=== PATIENT | male | born 1935 | race Caucasian/White ===

== ENCOUNTER 2021-01-23 12:34 | Outpatient (CLI) | payer MEDICARE, BC | END 2021-01-23 12:35 | disposition home or self-care (01) | LOC: CSHCT 12:34 | PROVIDERS: ATTEND Family Medicine | DX: C61 Malignant neoplasm of prostate (principal); D18.03 Hemangioma of intra-abdominal structures; N28.1 Cyst of kidney, acquired | CPT/HCPCS: 74177; 82565 ==

== ENCOUNTER 2022-06-01 09:30 | Emergency (ER) | payer MEDICARE, BC ==
[2022-06-01 10:10] LABS: #Eosinphils 0.3 10x3/uL (0.0-0.5); #Monocytes 0.5 10x3/uL (0.0-1.1); #Neutrophils 3.5 10x3/uL (1.5-8.4); %Basophils 0.8 % (0.0-2.0); %Eosinophils 5.1 % (0.0-6.0); %Lymphocytes 11.5 % (18.0-47.0); %Monocytes 10.3 % (0.0-10.0); %Neutrophils 72.1 % (40.0-75.0); Hemoglobin 11.4 g/dL (13.5-17.5); Mean Corpuscular HGB CONC 32.4 g/dL (32.0-36.0); Mean Corpuscular Hemoglobin 34.3 pg (27.0-33.0); Platelet Count 226 10x3/uL (150-450); RBC Distribution Width 12.5 % (11.5-14.5); Red Blood Cell (RBC) Count 3.32 10x6/uL (4.32-5.72); White Blood Cell (WBC) Count 4.9 10x3/uL (3.5-10.5)
[2022-06-01 10:24] LABS: ALT (SGPT) 16 U/L (8-55); AST (SGOT) 24 U/L (5-34); Albumin 3.6 g/dL (3.4-4.8); Alkaline Phosphatase 59 U/L (40-110); Anion Gap 14 mmol/L (10-20); BUN (Urea Nitrogen) 19 mg/dL (8.4-25.7); Bilirubin, Total 0.7 mg/dL (0.2-1.2); Calc. Creatinine Clearance 0 mL/min (70-130); Calcium 8.9 mg/dL (7.8-10.44); Carbon Dioxide 25 mmol/L (23-31); Chloride 107 mmol/L (98-107); Estimated GFR 69; Globulin 2.5 g/dL (2.4-3.5); Glucose 116 mg/dL (83-110); Potassium 4.5 mmol/L (3.5-5.1); Protein, Total 6.1 g/dL (5.8-8.1); Sodium 141 mmol/L (136-145)
[2022-06-01 10:48] LABS: Macrocytosis MARKED = >30 cells (100X) (0-5/hpf)
[2022-06-01] MEDS ORDERED: Acetaminophen 325 MG TAB PO PRN (13:12)
[2022-06-01] MEDS ORDERED: Ondansetron PF 4 MG/2 ML Vial IVP PRN (13:12)
== END 2022-06-01 12:00 | disposition short-term general hospital (02) ==
LOC: CSHERS 09:30 → SUATTDRO 09:30 → CSHERS 12:00
PROVIDERS: ADMIT Internal Medicine; ATTEND Internal Medicine
DX: R55 Syncope and collapse (principal); R00.1 Bradycardia, unspecified; I10 Essential (primary) hypertension; Z79.899 Other long term (current) drug therapy
CPT/HCPCS: 36415; 80053; 84484; 85025; 93005

== ENCOUNTER 2022-06-25 20:14 | Observation (INO) | payer MEDICARE, BC ==
[2022-06-25] MEDS ORDERED: Ketorolac Tromethamine 30 MG/ML VIAL ONE (21:31)
[2022-06-26] MEDS ORDERED: Acetaminophen 325 MG TAB ONE (00:06)
[2022-06-26] MEDS ORDERED: Senokot S 8.6-50 MG TAB PO PRN (02:37)
[2022-06-26] MEDS ORDERED: Ondansetron ODT 4 MG TAB PO PRN (02:37)
[2022-06-26] MEDS ORDERED: Ondansetron PF 4 MG/2 ML Vial IVP PRN (02:37)
[2022-06-26] MEDS ORDERED: HYDROcodone/Acetaminophen 5/325 mg Tablet PO PRN (02:37)
[2022-06-26 03:27] LABS: Anion Gap 14 mmol/L (10-20); BUN (Urea Nitrogen) 23 mg/dL (8.4-25.7); Calc. Creatinine Clearance 0 mL/min (70-130); Calcium 8.8 mg/dL (7.8-10.44); Carbon Dioxide 23 mmol/L (23-31); Chloride 105 mmol/L (98-107); Estimated GFR 72; Glucose 144 mg/dL (83-110); Magnesium 2.2 mg/dL (1.6-2.6); Potassium 4.1 mmol/L (3.5-5.1); Sodium 138 mmol/L (136-145)
[2022-06-26 03:37] LABS: #Monocytes 0.4 10x3/uL (0.0-1.1); #Neutrophils 3.3 10x3/uL (1.5-8.4); %Basophils 0.3 % (0.0-2.0); %Eosinophils 0.3 % (0.0-6.0); %Lymphocytes 4.1 % (18.0-47.0); %Monocytes 11.1 % (0.0-10.0); %Neutrophils 83.9 % (40.0-75.0); Hemoglobin 9.7 g/dL (13.5-17.5); Mean Corpuscular HGB CONC 33.7 g/dL (32.0-36.0); Mean Corpuscular Hemoglobin 34.8 pg (27.0-33.0); Mean Corpuscular Volume 103.2 fl (81.2-95.1); Platelet Count 174 10x3/uL (150-450); RBC Distribution Width 12.8 % (11.5-14.5); Red Blood Cell (RBC) Count 2.79 10x6/uL (4.32-5.72); White Blood Cell (WBC) Count 3.9 10x3/uL (3.5-10.5)
[2022-06-26 05:25] VITALS: BMI 25.2
[2022-06-26] MEDS ORDERED: Fentanyl 100 MCG/2 ML VIAL SLOW IVP SCH (05:30)
[2022-06-26] MEDS ORDERED: Alendronate Sodium 70 mg Tablet PO SCH (05:30)
[2022-06-26] MEDS: Acetaminophen 325 MG TAB PO PRN ×3 (05:51→16:42)
[2022-06-26 06:41] LABS: Bilirubin Neg (Negative); Blood, Urine Negative (Negative); Clarity Clear (Clear); Glucose, Urine (Dipstick) Normal (Negative); Ketone, Urine Negative (Negative); Leukocyte 25 (Negative); Nitrite Negative (Negative); Protein, Urine (Dipstick) 30 mg/dl (Neg-Trace); Urobilinogen Normal mg/dL (Less than 2)
[2022-06-26 07:33] LABS: Bacteria/HPF None Seen HPF (None Seen); RBC/HPF 0-3 HPF (0-3); Squamous Epithelial 0-3 HPF (0-3); WBC/HPF 0-3 HPF (0-3)
[2022-06-26] MEDS ORDERED: Multivit, Therapeutic 1 TAB PO SCH (09:00)
[2022-06-26] MEDS ORDERED: Cholecalciferol 1,000 UNITS (25 MCG) TAB PO SCH (09:00)
[2022-06-26] MEDS ORDERED: Fludrocortisone Acetate 0.1 MG TAB PO SCH (09:00)
[2022-06-26] MEDS: Ketorolac Tromethamine 30 MG/ML VIAL IVP PRN ×2 (11:40→18:37)
[2022-06-26 17:27] VITALS: BP 137/67; TEMP 99.1
[2022-06-26] MEDS ORDERED: Atorvastatin Calcium 10 MG TAB PO SCH (21:00)
== END 2022-06-26 20:19 ==
LOC: CSHERS 20:14 → CSHTELE 06-26 05:04
PROVIDERS: ADMIT Family Medicine; ATTEND Internal Medicine
DX: S32.029A Unspecified fracture of second lumbar vertebra, initial encounter for closed fracture (principal); U07.1 COVID-19; F03.90 Unspecified dementia, unspecified severity, without behavioral disturbance, psychotic disturbance, mood disturbance, and anxiety; I10 Essential (primary) hypertension; N40.0 Benign prostatic hyperplasia without lower urinary tract symptoms; Z85.46 Personal history of malignant neoplasm of prostate; E78.5 Hyperlipidemia, unspecified; F17.220 Nicotine dependence, chewing tobacco, uncomplicated; W18.30XA Fall on same level, unspecified, initial encounter; Z79.899 Other long term (current) drug therapy
CPT/HCPCS: 71101; 72100; 72220; 80048; 81001; 83735; 85025; 93005; 96372; 96375; 96376; G0378 ×2; U0003; U0005; 36415; 93010; 96374; J1650; J1885; J3010

== ENCOUNTER 2022-07-22 08:14 | Inpatient (IN) | payer MEDICARE, BC ==
[2022-07-22 08:57] LABS: #Eosinphils 0.1 10x3/uL (0.0-0.5); #Monocytes 0.3 10x3/uL (0.0-1.1); #Neutrophils 1.5 10x3/uL (1.5-8.4); %Basophils 0.9 % (0.0-2.0); %Eosinophils 4.5 % (0.0-6.0); %Lymphocytes 11.3 % (18.0-47.0); %Monocytes 14.9 % (0.0-10.0); %Neutrophils 67.9 % (40.0-75.0); Hemoglobin 10.2 g/dL (13.5-17.5); Mean Corpuscular HGB CONC 32.9 g/dL (32.0-36.0); Mean Corpuscular Hemoglobin 34.6 pg (27.0-33.0); Mean Corpuscular Volume 105.1 fl (81.2-95.1); Mean Platelet Volume 9.5 fl (7.4-10.4); Platelet Count 217 10x3/uL (150-450); RBC Distribution Width 14.4 % (11.5-14.5); Red Blood Cell (RBC) Count 2.95 10x6/uL (4.32-5.72); White Blood Cell (WBC) Count 2.2 10x3/uL (3.5-10.5)
[2022-07-22 09:13] LABS: ALT (SGPT) 21 U/L (8-55); AST (SGOT) 28 U/L (5-34); Albumin 3.3 g/dL (3.4-4.8); Alkaline Phosphatase 67 U/L (40-110); Anion Gap 12 mmol/L (10-20); BUN (Urea Nitrogen) 16 mg/dL (8.4-25.7); Bilirubin, Total 0.6 mg/dL (0.2-1.2); Calc. Creatinine Clearance 0 mL/min (70-130); Calcium 8.4 mg/dL (7.8-10.44); Carbon Dioxide 25 mmol/L (23-31); Chloride 105 mmol/L (98-107); Estimated GFR 65; Globulin 2.5 g/dL (2.4-3.5); Glucose 105 mg/dL (83-110); Potassium 3.9 mmol/L (3.5-5.1); Protein, Total 5.8 g/dL (5.8-8.1); Sodium 138 mmol/L (136-145)
[2022-07-22 09:34] LABS: Macrocytosis SLIGHT = 6-15 cells (100X) (0-5/hpf)
[2022-07-22 09:35] LABS: Platelet Morphology Comment Appears Adequate
[2022-07-22] MEDS ORDERED: Iopamidol 370 76% 100 ML VIAL ONE (09:48)
[2022-07-22 10:17] LABS: Bilirubin Neg (Negative); Blood, Urine 250 (Negative); Clarity Cloudy (Clear); Glucose, Urine (Dipstick) Normal (Negative); Ketone, Urine Negative (Negative); Leukocyte Negative (Negative); Nitrite Negative (Negative); Protein, Urine (Dipstick) 15 mg/dl (Neg-Trace); Specific Gravity, Urine 1.015 (1.005-1.030); Urobilinogen Normal mg/dL (Less than 2)
[2022-07-22 10:27] LABS: RBC/HPF Greater than 50 HPF (0-3)
[2022-07-22 10:28] LABS: Bacteria/HPF Rare-Few HPF (None Seen); WBC/HPF 0-3 HPF (0-3)
[2022-07-22 10:49] LABS: Free T4 (Free Thyroxine) 1.12 ng/dL (0.70-1.48)
[2022-07-22 14:07] LABS: Actual Bicarbonate (HCO3a) 21.8 mEq/L (22-28); Base Excess (BEa) -2.1 mEq/L (-2.0 to +3.0); CO2 Tension 34.4 mmHg (35.0-45.0); Calcium, Ionized (arterial) 1.12 mmol/L (1.12-1.30); Carboxyhemoglobin (COHb) 0.3 gm% (0.0-3.0); Hematocrit-ABG 33 % (42.0-52.0); Hemoglobin (Hb) 11.1 g/dL (14.0-18.0); O2 Tension (PaO2), arterial 85.2 mmHg (> 60.0); Potassium - ABG Lab 3.64 mmol/L (3.70-5.30); Puncture Site LRA
[2022-07-22 14:07] LABS: PTT 24.4 sec (22.0-33.0); Prothrombin Time 10.8 sec (9.5-12.1)
[2022-07-22] MEDS ORDERED: Communication Order-Pharmacy FS SCH (15:00)
[2022-07-22] MEDS ORDERED: Mag-Al 1200 mg/1200 mg/30 ML UDCUP PO PRN (15:00)
[2022-07-22] MEDS ORDERED: Acetaminophen 325 MG TAB PO PRN (15:00)
[2022-07-22] MEDS ORDERED: hydrALAZINE 20 MG/ML VIAL SLOW IVP PRN (15:00)
[2022-07-22] MEDS ORDERED: Acetaminophen 650 MG Suppository PR PRN (15:00)
[2022-07-22] MEDS ORDERED: Labetalol HCl 100 MG/20 ML VIAL SLOW IVP PRN (15:00)
[2022-07-22] MEDS ORDERED: niCARdipine 25 MG in Sodium Chloride 0.9% 250 ML 250 ML IVPB PRN (15:00)
[2022-07-22 15:24] LABS: Troponin I 0.014 ng/mL (< 0.028)
[2022-07-22] MEDS ORDERED: Senokot S 8.6-50 MG TAB PO PRN (15:57)
[2022-07-22] MEDS ORDERED: Ondansetron PF 4 MG/2 ML Vial IVP PRN (15:57)
[2022-07-22] MEDS ORDERED: Bisacodyl 10 MG SUPP PR PRN (15:57)
[2022-07-22] MEDS ORDERED: NOREPINEPHRINE 8 MG/250 ML-D5W 250 ML ONE (17:30)
[2022-07-22] MEDS ORDERED: NOREPINEPHRINE 8 MG/250 ML-D5W 250 ML IVPB SCH (17:30)
[2022-07-22] MEDS ORDERED: Lorazepam 2 MG/ML VIAL SLOW IVP PRN (17:45)
[2022-07-22] MEDS ORDERED: Haloperidol Lactate 5 MG/ML VIAL SLOW IVP SCH (17:45)
[2022-07-22] MEDS ORDERED: diphenhydrAMINE 50 MG/ML VIAL IVP SCH ×2 (18:15)
[2022-07-22] MEDS ORDERED: Lactated Ringer's 500 ML IV SCH (18:15)
[2022-07-22] MEDS ORDERED: Haloperidol Lactate 5 MG/ML VIAL ONE (18:35)
[2022-07-22] MEDS ORDERED: Pantoprazole 40 MG VIAL IVP SCH (21:00)
[2022-07-22] MEDS ORDERED: Famotidine/PF 20 mg/2ml Vial SLOW IVP SCH (21:00)
[2022-07-22] MEDS ORDERED: Atorvastatin Calcium 40 MG TAB PO SCH (21:00)
[2022-07-22] MEDS: Dextrose 5 %-0.45 % NaCl 1,000 ML IV SCH (21:26)
[2022-07-23 05:28] VITALS: TEMP 98.1
[2022-07-23] MEDS ORDERED: Pantoprazole 40 MG VIAL IVP SCH (09:00)
[2022-07-23 11:50] VITALS: BP 137/103
[2022-07-23] MEDS: Dextrose 5 %-0.45 % NaCl 1,000 ML IV SCH (13:23)
[2022-07-23] MEDS ORDERED: Sodium Chloride 0.9% 250 ML 250 ML ONE (15:00)
[2022-07-23] MEDS ORDERED: niCARdipine 25 MG/10 ML SDV ONE (15:00)
[2022-07-23] MEDS ORDERED: Aspirin 300 MG Suppository PR SCH (15:00)
[2022-07-23] MEDS: niCARdipine 25 MG in Sodium Chloride 0.9% 250 ML 250 ML IVPB PRN ×2 (15:08→18:26)
[2022-07-23 15:29] VITALS: BMI 25.2
[2022-07-23 15:34] LABS: Hemoglobin 9.5 g/dL (13.5-17.5); MDiff Complete? YES; Mean Corpuscular HGB CONC 33.3 g/dL (32.0-36.0); Mean Corpuscular Hemoglobin 34.7 pg (27.0-33.0); Mean Platelet Volume 9.7 fl (7.4-10.4); Platelet Count 202 10x3/uL (150-450); RBC Distribution Width 13.9 % (11.5-14.5); Red Blood Cell (RBC) Count 2.74 10x6/uL (4.32-5.72); White Blood Cell (WBC) Count 5.3 10x3/uL (3.5-10.5)
[2022-07-23 16:21] LABS: INR-International Normal Ratio 1.1; PTT 27.1 sec (22.0-33.0); Prothrombin Time 11.4 sec (9.5-12.1)
[2022-07-23 16:23] LABS: ALT (SGPT) 21 U/L (8-55); AST (SGOT) 39 U/L (5-34); Albumin 3.5 g/dL (3.4-4.8); Alkaline Phosphatase 71 U/L (40-110); Anion Gap 13 mmol/L (10-20); BUN (Urea Nitrogen) 11 mg/dL (8.4-25.7); Bilirubin, Total 0.8 mg/dL (0.2-1.2); Calc. Creatinine Clearance 71 mL/min (70-130); Calcium 8.1 mg/dL (7.8-10.44); Carbon Dioxide 25 mmol/L (23-31); Chloride 103 mmol/L (98-107); Estimated GFR 88; Globulin 2.6 g/dL (2.4-3.5); Glucose 120 mg/dL (83-110); Potassium 3.6 mmol/L (3.5-5.1); Protein, Total 6.1 g/dL (5.8-8.1); Sodium 137 mmol/L (136-145)
[2022-07-23 16:27] LABS: Cardiac Risk 2.9 (Less than 4.5); Cholesterol 160 mg/dl (< 200 Desired); HDL Cholesterol 55 mg/dL (>60 Neg Risk); LDL Cholesterol, Calculated 94 mg/dL; Triglycerides 54 mg/dL (Less than 150)
[2022-07-23] MEDS ORDERED: Lorazepam 2 MG/ML VIAL SLOW IVP PRN (16:34)
[2022-07-23 16:46] LABS: Lymphocytes 5 % (21-51); Macrocytosis SLIGHT = 6-15 cells (100X) (0-5/hpf); Monocytes 16 % (0-10); Neutrophil 79 % (42-75); Poikilocytosis SLIGHT = 6-15 cells (100X) (0-5/hpf)
[2022-07-23 16:47] LABS: Ovalocytes SLIGHT = 2-5 cells (100X) (0-1/hpf); Platelet Clumps SLIGHT; Platelet Morphology Comment Appears Adequate
[2022-07-24] MEDS ORDERED: Pantoprazole 40 MG VIAL IVP SCH (09:00)
== END 2022-07-23 18:45 | DRG 61 ==
LOC: CSHERS 08:14 → CSHERHOLD 18:12 → CSHICU 19:22
PROVIDERS: ADMIT Family Medicine; ATTEND Family Medicine
PROC: 3E03317 Introduction of Other Thrombolytic into Peripheral Vein, Percutaneous Approach (ICD-10-PCS; principal; 2022-07-22)
PROC: 3E033XZ Introduction of Vasopressor into Peripheral Vein, Percutaneous Approach (ICD-10-PCS; 2022-07-22)
PROC: 4A033R1 Measurement of Arterial Saturation, Peripheral, Percutaneous Approach (ICD-10-PCS; 2022-07-22)
DX: I63.9 Cerebral infarction, unspecified (principal); I60.9 Nontraumatic subarachnoid hemorrhage, unspecified; Z66 Do not resuscitate; D64.9 Anemia, unspecified; I10 Essential (primary) hypertension; D72.819 Decreased white blood cell count, unspecified; R31.9 Hematuria, unspecified; N40.1 Benign prostatic hyperplasia with lower urinary tract symptoms; F03.A0 Unspecified dementia, mild, without behavioral disturbance, psychotic disturbance, mood disturbance, and anxiety; E03.9 Hypothyroidism, unspecified; I95.1 Orthostatic hypotension; R29.733 NIHSS score 33; R00.1 Bradycardia, unspecified; E78.5 Hyperlipidemia, unspecified; Z79.899 Other long term (current) drug therapy; Z85.46 Personal history of malignant neoplasm of prostate; Z92.3 Personal history of irradiation; Z86.16 Personal history of COVID-19; Z98.41 Cataract extraction status, right eye; Z90.89 Acquired absence of other organs; Z79.82 Long term (current) use of aspirin
CPT/HCPCS: 0042T; 36415; 36416; 36600; 70450; 70551; 71045; 80053; 80061; 81003; 81015; 82805; 83605; 83735; 83880; 84439; 84443; 84481; 84484; 85025; 85384; 85610; 85730; 93005; 93010; 93306; 93880; 94760; 94762; C9113; J1630; J2060; J7042; J7050; J7120; Q9967